=== PATIENT | male | born 1960 | race Caucasian/White ===

== ENCOUNTER 2019-01-13 09:39 | Emergency (ER) | payer OTHER ==
[~2019-01-13] VITALS: Ht 170.2 cm; Wt 83.9 kg
--- NOTE | 2019-01-13 09:50 | NUR ---
PT AMB TO ER BED 4
[2019-01-13 10:01] VITALS: BP 194/108
[2019-01-13] MEDS ORDERED: KETOROLAC 60 MG/2 ML VIAL IM ONE (10:10)
--- NOTE | 2019-01-13 10:11 | NUR ---
PATIENT PRESENTS TO ED WITH NECK PAIN RADIATING TO SHOULDERS AND BACK. PT ALSO C/O NUMBNESS TO UPPER AND LOWER EXTREMITIES. DENIES N/V. AAOX4 WITH EVEN AND STEADY GAIT; PT VERBALIZED HAVING FEVERS APPROX 2 WEEKS AGO. AFEBRILE AT THIS TIME. NO CP, SOB, OR COUGH. PATIENT STATES PAIN OF 10/10 AT THIS TIME; BLOOD PRESSURE ELEVATED, PER PT HE DIDNT TAKE HIS B/P MEDICINE TODAY. POSITIONED FOR COMFORT; HOB ELEVATED; BEDRAILS UP X1; BED DOWN.
[2019-01-13] MEDS ORDERED: MORPHINE SULFATE 4 MG/ML SYR IM ONE (11:25)
[2019-01-13 12:05] VITALS: BP 188/101
--- NOTE | 2019-01-13 12:06 | NUR ---
Patient discharged with v/s stable. Written and verbal after care instructions given and explained. Patient alert, oriented and verbalized understanding of instructions. Ambulatory with steady gait. All questions addressed prior to discharge. ID band removed. Patient advised to follow up with PMD. Rx of Valium and Naprosyn given. Patient educated on indication of medication including possible reaction and side effects. Opportunity to ask questions provided and answered.
== END 2019-01-13 12:06 | disposition home or self-care (01) ==
LOC: MED 09:39
DX: G89.29 Other chronic pain (principal); M54.2 Cervicalgia; M79.10 Myalgia, unspecified site; E11.9 Type 2 diabetes mellitus without complications; I10 Essential (primary) hypertension
CPT/HCPCS: 96372; 99283; J1885; J2270

== ENCOUNTER 2020-08-21 12:05 | Observation (INO) | payer OTHER, SELFPAY ==
[~2020-08-21] VITALS: Ht 175.3 cm; Wt 81.6 kg
--- NOTE | 2020-08-21 12:08 | NUR ---
Patient BIBA ALS, transferred to bed 12. RN evaluating patient at bedside.
[2020-08-21 12:47] VITALS: BP 125/75
--- NOTE | 2020-08-21 12:50 | NUR ---
PT HAD EPISODE OF [id number] ACCOMPANIED BY VOMITING WHILE USING BATHROOM THIS MORNING. BS 362 ON SCENE PER EMS. DENIES LOC OR HEAD TRAUMA. DENIES FEVER, SOB, CHEST PAIN, DIARRHEA, OR SICK CONTACT AT THIS TIME. PT HAS INSULIN PUMP ON THE RIGHT SIDED ABDOMEN. PMH: DM, HTN
[2020-08-21] MEDS ORDERED: NACL 0.9% 1,000 ML IV ONE (13:20)
[2020-08-21] MEDS ORDERED: KETOROLAC 30 MG/ML VIAL IVP ONE (13:20)
[2020-08-21 13:53] LABS: BASOPHILS % (AUTO) 0.3 % (0.0-2.0); HEMATOCRIT 47.3 % (36-52); HEMOGLOBIN 16.1 g/dL (12.0-18.0); LYMPHOCYTES # (AUTO) 0.7 K/uL (2.0-11.5); MEAN CORPUSCULAR HEMOGLOBIN 30 pg (27-31); MEAN CORPUSCULAR HGB CONC 34 g/dL (33-37); MEAN CORPUSCULAR VOLUME 89.1 fL (80-94); MONOCYTES # (AUTO) 0.3 K/uL (0.8-1.0); MONOCYTES % (AUTO) 6.5 % (1.7-9.3); NEUTROPHILS # (AUTO) 3.7 K/uL (1.8-7.7); NEUTROPHILS % (AUTO) 78.2 % (42.2-75.2); PLATELET COUNT (AUTO) 89 K/uL (140-450); RED CELL DISTRIBUTION WIDTH 13.4 % (11.6-13.7); WHITE BLOOD COUNT (AUTO) 4.8 K/uL (4.8-10.8)
[2020-08-21 14:07] LABS: ANION GAP 12.3 (8-16); CARBON DIOXIDE 24.4 mmol/L (21-32); CREATININE 1.6 mg/dL (0.6-1.3); POTASSIUM 3.7 mmol/L (3.5-5.1); TOTAL BILIRUBIN 0.3 mg/dL (0.0-1.0)
[2020-08-21] MEDS ORDERED: ONDANSETRON 4 MG/2 ML VIAL IVP ONE (15:15)
[2020-08-21] MEDS ORDERED: ASPIRIN 81 MG TAB.CHEW PO ONE (15:15)
[2020-08-21] MEDS ORDERED: MORPHINE SULFATE 4 MG/ML SYR IVP ONE (15:15)
[2020-08-21] MEDS ORDERED: ZOLPIDEM 5 MG TAB PO PRN (15:55)
[2020-08-21] MEDS ORDERED: ACETAMINOPHEN 325 MG TAB PO PRN (15:55)
[2020-08-21] MEDS ORDERED: ONDANSETRON 4 MG/2 ML VIAL IVP PRN (15:55)
--- NOTE | 2020-08-21 18:30 | NUR ---
TONIA, NOVEL, AND MRSA SWABS COLLECTED AND SENT TO THE LAB.
--- NOTE | 2020-08-21 18:35 | NUR ---
CALLED PT'S HAILY AND HAVE PT TAKE TO HIS VIA CELL PHONE
--- NOTE | 2020-08-21 19:15 | NUR ---
REPORT GIVEN TO PACHECO BERGER. TX OF CARE AT THIS TIME.
--- NOTE | 2020-08-21 19:25 | NUR ---
Assumed patient care. GCS 15; breathing 28RR; skin intact; patient is cooperative; placed on monitor; bed placed on lowest position. Will continue to monitor.
--- NOTE | 2020-08-21 19:30 | NUR ---
Assumed patient care. patient is a/ox4 sitting in bed quietly. skin is intact bedside at lowest position HOB at 45 degrees. Vss. Will continue to monitor.
--- NOTE | 2020-08-21 19:35 | NUR ---
LAB CALLED WITH RESULTS. PT IS COVID (+)
--- NOTE | 2020-08-21 21:43 | NUR ---
Patient resting in bed; no distress noted. Will continue to monitor.
--- NOTE | 2020-08-21 22:59 | NUR ---
Admitted to tele 105 A Belongings list completed. Report to PACHECO Bhatia.
--- NOTE | 2020-08-21 23:00 | NUR ---
Admitted from ER TO TELEMETRY OBSERVATION PATIENT, with chief complaint of SYNCOPE, NECK, ARMS, LOWER BACK PAINS , 59 y/o ,Male, Cooperative, AWAKE, A/OX4, ARABIC SPEAKING. ADMISSION DATA OBTAINED WITH SHIPPER AND RECEIVING HARVEY, #[id number]. LUNGS CLEAR ON AUSCULTATION. RESPIRATION EVEN AND UNLABORED. ON ROOM AIR, SATURATION 95%. ON DROPLET PRECAUTION, COVID +, PCR STILL PENDING. ABLE TO AMBULATE BUT SLOW. HEAD TO TOE ASSESSMENT DONE WITH CHARGE NURSE BETITO, SKIN IS INTACT. SINUS RHYTHM ON TELE MONITORING. DENIES PAIN 0/10. oriented to call light, bed, phone,television, bathroom, smoking policy,visiting hours, procedures, ID bracelet on. Belongings list checked.
[2020-08-22] VITALS: BP 154/86
--- NOTE | 2020-08-22 02:06 | NUR ---
Patient's Plan of Care was discussed and reviewed with SUPERCHARGER MECHANIC: GENE WRIGHT
[2020-08-22 04:00] VITALS: BP 143/86
--- NOTE | 2020-08-22 04:00 | NUR ---
SLEEPING COMFORTABLY IN BED, WARM BLANKET GIVEN.
--- NOTE | 2020-08-22 07:00 | NUR ---
NO COMPLAINT OF PAIN DURING SHIFT. CONDITION STABLE. WILL ENDORSE TO AM SHIFT NURSE FOR CONTINUITY OF CARE.
[2020-08-22 07:26] LABS: ANION GAP 9.7 (8-16); CARBON DIOXIDE 29.3 mmol/L (21-32); CREATININE 1.5 mg/dL (0.6-1.3)
[2020-08-22 07:54] LABS: CHOL/HDL RATIO 4.4 (1-4.5)
[2020-08-22 08:00] VITALS: BP 141/86
--- NOTE | 2020-08-22 08:36 | NUR ---
PATIENT HAS BEEN SCREENED AND CATEGORIZED MODERATE NUTRITION RISK. PATIENT WILL BE SEEN WITHIN 3-5 DAYS OF ADMISSION. 08/24/20 08/26/[address]
[2020-08-22] MEDS ORDERED: DOCUSATE SODIUM 100 MG GELCAP PO SCH (09:00)
--- NOTE | 2020-08-22 09:51 | NUR ---
SCHEDULED MEDICATION COLACE GIVEN. EDUCATION PROVIDED. PATIENT HAS MULTIPLE LOCATIONS CHRONIC PAIN. PAIN MED NEEDED. NO CURRENT PAIN MEDS ON FILE. WILL REPORT TO MD. SAFETY MEASURES IN PLACE, CALL LIGHT WITHIN REACH. WILL CONTINUE TO MONITOR.
[2020-08-22 12:00] VITALS: BP 143/80
--- NOTE | 2020-08-22 13:05 | NUR ---
PATIENT RESTING IN BED WITH NO ACUTE DISTRESS. SAFETY MEASURES IN PLACE, WILL CONTINUE TO MONITOR.
--- NOTE | 2020-08-22 14:21 | NUR ---
TYLENOL GIVEN FOR TEMPERATURE 100.4. EDUCATION PROVIDED. SAFETY MEASURES IN PLACE, WILL CONTINUE TO MONITOR.
--- NOTE | 2020-08-22 15:28 | NUR ---
PATIENT'S TEMP 98.7. NO RESPIRATORY DISTRESS. WILL CONTINUE TO MONITOR.
[2020-08-22 16:00] VITALS: BP 134/80
--- NOTE | 2020-08-22 16:24 | NUR ---
DISCHARGE INSTRUCTIONS PROVIDED REGARDING CURRENT DIAGNOSIS, HOME SELF QUARANTINE FOR COVID. CONTINUE TO TAKE HOME MEDICATIONS. FALL PREVENTION AND DM. PATIENT VERBALIZED UNDERSTANDING.
== END 2020-08-22 16:40 | disposition home or self-care (01) ==
LOC: MED 12:05 → MTU 15:59
PROVIDERS: ADMIT Hospitalist; ATTEND Hospitalist
DX: U07.1 COVID-19 (principal); R55 Syncope and collapse; R07.89 Other chest pain; I12.9 Hypertensive chronic kidney disease with stage 1 through stage 4 chronic kidney disease, or unspecified chronic kidney disease; E11.22 Type 2 diabetes mellitus with diabetic chronic kidney disease; N18.30 Chronic kidney disease, stage 3 unspecified; R79.89 Other specified abnormal findings of blood chemistry; E78.5 Hyperlipidemia, unspecified; D69.6 Thrombocytopenia, unspecified; E87.1 Hypo-osmolality and hyponatremia; G89.29 Other chronic pain; M54.2 Cervicalgia; Z79.899 Other long term (current) drug therapy
CPT/HCPCS: 36415; 71045; 80048; 80053; 80061; 83036; 84484; 85025; 87081; 87426; 93005; 96361; 96374; 96375; 97110; 97116; 97161; 99285; G0378; J1885; J2270; J2405; U0003

== ENCOUNTER 2021-09-15 17:46 | Emergency (ER) | payer MEDICARE, OTHER ==
[~2021-09-15] VITALS: Ht 177.8 cm; Wt 108.9 kg
--- NOTE | 2021-09-15 17:46 | NUR ---
PT CLAUDIO AND TAKEN TO BED 12. CODE BRAIN CALLED ON PATIENT AT THIS TIME
[2021-09-15 18:04] VITALS: BP 210/130
[2021-09-15] MEDS ORDERED: NICARDIPINE HYDROCHLORIDE 25 MG in NACL 0.9% 240 ML IV ONE (18:25)
[2021-09-15] MEDS ORDERED: ONDANSETRON 4 MG/2 ML VIAL IVP ONE (18:25)
[2021-09-15] MEDS ORDERED: NICARDIPINE HYDROCHLORIDE 2.5 MG/ML VIAL IV ONE (18:28)
[2021-09-15 18:33] LABS: BASOPHILS # (AUTO) 0.1 K/uL (0.00-0.22); BASOPHILS % (AUTO) 0.7 % (0.0-2.0); EOSINOPHILS # (AUTO) 0.2 K/uL (0-0.4); EOSINOPHILS % (AUTO) 1.5 % (0.0-4.0); HEMATOCRIT 43.4 % (36-52); HEMOGLOBIN 14.7 g/dL (12.0-18.0); LYMPHOCYTES # (AUTO) 2.2 K/uL (2.0-11.5); LYMPHOCYTES % (AUTO) 22.4 % (20.5-51.1); MEAN CORPUSCULAR HEMOGLOBIN 30 pg (27-31); MEAN CORPUSCULAR HGB CONC 34 g/dL (33-37); MONOCYTES # (AUTO) 0.6 K/uL (0.8-1.0); MONOCYTES % (AUTO) 6.1 % (1.7-9.3); NEUTROPHILS # (AUTO) 6.9 K/uL (1.8-7.7); NEUTROPHILS % (AUTO) 69.3 % (42.2-75.2); PLATELET COUNT (AUTO) 176 K/uL (140-450); RED BLOOD CELL COUNT(AUTO) 4.88 MIL/uL (4.20-6.10); RED CELL DISTRIBUTION WIDTH 13.4 % (11.6-13.7); WHITE BLOOD COUNT (AUTO) 9.9 K/uL (4.8-10.8)
[2021-09-15] MEDS ORDERED: ENALAPRILAT 2.5 MG/2 ML VIAL IVP ONE (18:40)
--- NOTE | 2021-09-15 18:49 | NUR ---
PT BIBA FROM HOME C/O HEADACHE, DIZZINESS, AND WEAKNESS 10 MIN PRIOR TO EMS ARRIVAL. PT C/O NAUSEA AND VOMITING. UPON ARRIVAL PATIENT IS HUNCHED OVER, ACTIVELY VOMITTING, AND PALE LOOKING. SKIN IS DIAPHORETIC AT THIS TIME. CODE BRAIN CALLED AT THIS TIME FOR PATIENT. PATIENT CURRENTLY A&OX4. MEDHX: HTN, DM NKA
[2021-09-15 18:58] LABS: ALBUMIN 3.1 g/dL (3.4-5.0); ANION GAP 12.5 (8-16); CARBON DIOXIDE 27.2 mmol/L (21-32); CREATININE 1.4 mg/dL (0.6-1.3); POTASSIUM 3.7 mmol/L (3.5-5.1); TOTAL BILIRUBIN 0.3 mg/dL (0.0-1.0)
[2021-09-15] MEDS ORDERED: LABETALOL 100 MG/20 ML VIAL IVP ONE ×2 (19:05→19:20)
[2021-09-15 19:24] VITALS: BP 139/85
--- NOTE | 2021-09-15 19:27 | NUR ---
Patient to be transferred to [facility]. Is being transferred due to HIGHER LEVEL OF CARE. Receiving facility has accepting physician and available space. ER physician has signed transfer form. Patient or responsible democrat has agreed to transfer and signed form. Patient belongings inventoried and will be sent with patient. Copy of nursing notes, lab reports, EKG, Physicians Orders and X-rays to be sent with patient. Report called to PACHECO REEVES at receiving facility. [facility] ambulance service has been called for transfer. ETA is 30 MIN.
--- NOTE | 2021-09-15 19:29 | NUR ---
Pt report given to PACHECO ISABEL. Transfer of care at this time.
--- NOTE | 2021-09-15 19:43 | NUR ---
[facility] at bedside for transfer
--- NOTE | 2021-09-15 19:45 | NUR ---
[facility] BEDSIDE FOR PATIENT TRANSPORTATION
== END 2021-09-15 19:45 | disposition short-term general hospital (02) ==
LOC: MED 17:46
DX: I61.4 Nontraumatic intracerebral hemorrhage in cerebellum (principal); I10 Essential (primary) hypertension; R11.2 Nausea with vomiting, unspecified; E11.65 Type 2 diabetes mellitus with hyperglycemia
CPT/HCPCS: 36415; 70450; 71045; 80053; 84484; 85025; 93005; 96374; 96375; 99285; J2405; J3490; J7030

== ENCOUNTER 2022-10-15 20:47 | Emergency (ER) | payer MEDICARE, OTHER ==
[~2022-10-15] VITALS: Ht 167.6 cm; Wt 88.0 kg
[2022-10-15 21:00] VITALS: BP 180/100
--- NOTE | 2022-10-15 21:03 | NUR ---
TO LOBBY A/W BED AMBULATORY
[2022-10-15] MEDS ORDERED: HYDROcodone/APAP 5/325 MG 1 TAB TAB PO ONE (23:10)
--- NOTE | 2022-10-15 23:12 | NUR ---
Patient resting in bed, A/Ox4, chest rise and fall symmetrical, no s/s of distress.
--- NOTE | 2022-10-15 23:13 | NUR ---
PT TAKEN TO BED 11
--- NOTE | 2022-10-15 23:15 | NUR ---
PT TAKEN TO CT
[2022-10-15 23:35] LABS: BASOPHILS # (AUTO) 0.1 K/uL (0.00-0.22); BASOPHILS % (AUTO) 0.6 % (0.0-2.0); EOSINOPHILS # (AUTO) 0.2 K/uL (0-0.4); EOSINOPHILS % (AUTO) 1.9 % (0.0-4.0); HEMOGLOBIN 15.2 g/dL (12.0-18.0); LYMPHOCYTES # (AUTO) 3.3 K/uL (2.0-11.5); MEAN CORPUSCULAR HEMOGLOBIN 30 pg (27-31); MEAN CORPUSCULAR HGB CONC 33 g/dL (33-37); MEAN CORPUSCULAR VOLUME 90.8 fL (80-94); MONOCYTES # (AUTO) 0.7 K/uL (0.8-1.0); MONOCYTES % (AUTO) 6.6 % (1.7-9.3); NEUTROPHILS # (AUTO) 6.3 K/uL (1.8-7.7); NEUTROPHILS % (AUTO) 59.9 % (42.2-75.2); PLATELET COUNT (AUTO) 154 K/uL (140-450); RED BLOOD CELL COUNT(AUTO) 5.06 MIL/uL (4.20-6.10); RED CELL DISTRIBUTION WIDTH 13.2 % (11.6-13.7); WHITE BLOOD COUNT (AUTO) 10.6 K/uL (4.8-10.8)
[2022-10-15 23:56] LABS: PROTHROMBIN TIME 9.3 secs (10.8-13.4)
[2022-10-15 23:58] LABS: ALBUMIN 4.2 g/dL (3.4-5.0); ANION GAP 11.1 (8-16); CARBON DIOXIDE 31.5 mmol/L (21-32); CREATININE 1.9 mg/dL (0.6-1.3); MAGNESIUM 1.9 mg/dL (1.8-2.4); PHOSPHORUS 3.3 mg/dL (2.5-4.9); POTASSIUM 4.6 mmol/L (3.5-5.1); TOTAL BILIRUBIN 0.3 mg/dL (0.0-1.0)
[2022-10-16] MEDS ORDERED: INSULIN REGULAR, HUMAN 100 UNIT/ML VIAL SUBQ ONE (00:15)
[2022-10-16] MEDS ORDERED: NACL 0.9% 1,000 ML IV ONE (00:15)
[2022-10-16] MEDS ORDERED: ACET-10509 PO (02:13)
[2022-10-16 02:28] VITALS: BP 145/85
== END 2022-10-16 02:30 | disposition home or self-care (01) ==
LOC: MED 20:47
DX: R51.9 Headache, unspecified (principal); E11.65 Type 2 diabetes mellitus with hyperglycemia; R42 Dizziness and giddiness; M79.10 Myalgia, unspecified site; I10 Essential (primary) hypertension; Z79.899 Other long term (current) drug therapy
CPT/HCPCS: 36415; 70450; 80053; 83735; 84100; 85025; 85610; 85730; 96360; 96372; 99285; J1815; J7030